=== PATIENT | male | born 1985 | race Caucasian/White ===

== ENCOUNTER 2019-08-22 18:46 | Observation (INO) | payer BC ==
[2019-08-22] MEDS ORDERED: SODIUM CHLORIDE 0.9% 1,000 ML IV STA (18:56)
[2019-08-22] MEDS ORDERED: DIPH,PERTUS(ACELL)TETVAC-LF 0.5 ML VIAL IM ONE (18:57)
[2019-08-22] MEDS ORDERED: MORPHINE SULFATE 4 MG/ML SYRINGE IV STA (18:57)
--- NOTE | 2019-08-22 19:03 | ED ---
General Adult HPI - General Stated complaint: chainsaw injury - History of Present Illness Initial comments: Dictation was produced using [employer] dictation software. please excuse any grammatical, word or spelling errors. Chief Complaint: 33-year-old male presents with leg wound. History of Present Illness: 33-year-old male who presents after leg wound. Patient was using a chain saw cutting shrubs [place]. He states that he lost his groundman/lineman chainsaw accidentally cut the lateral portion of his thigh. Patient does not know when his last tetanus was. Patient denies any numbness to going to his foot. She complains of significant pain to his left lateral leg. The ROS documented in this emergency department record has been reviewed and confirmed by me. Those systems with pertinent positive or negative responses have been documented in the HPI. All other systems are other negative and/or noncontributory. PHYSICAL EXAM: General Impression: Alert and oriented x3, not in acute distress HEENT: Normocephalic atraumatic, extra-ocular movements intact, pupils equal and reactive to light bilaterally, mucous membranes moist. Cardiovascular: Heart regular rate and rhythm, S1&S2 audible, no murmurs, rubs or gallops Chest: Lungs clear to auscultation bilaterally, no rhonchi, no wheeze, no rales Abdomen: Bowel sounds present, abdomen soft, non-tender, non-distended, no organomegaly Musculoskeletal: Pulses present and equal in all extremities, no peripheral edema Motor: no focal deficits noted Neurological: CN II-XII grossly intact, no focal motor or sensory deficits noted Skin: Large toe scene with a laceration to the lateral left thigh with expose fascia, exposing muscle belly. Psych: Normal affect and mood ED course: 33-year-old male presents with large laceration of the left lateral thigh after accidental trauma by a Chainsaw. Patient is large laceration to his left lateral thigh with exposed muscle tissue. tetanus was updated. Wound is irrigated. Patient given Ancef. His custom patient case with the branch of on- call orthopedic surgery who will speak to his attending regarding further care. The branch called back and requested that patient have his laceration closed loosely with sutures. Laceration at bedside was repaired using 3-0 nylon in a horizontal mattress fashion. More thorough will plan on doing wound washout and repair tomorrow at approximately 11 AM.Lab data evaluation obtained. Patient has mild hypokalemia of 3.1. Patient given by mouth potassium. Alcohol is 106. Femur x-ray at the site of the injury was a obtained. No obvious foreign bodies. Patient be admitted to Dr. Jain plans for - Related Data Home Medications Medication Instructions Recorded Confirmed No Known Home Medications 08/22/19 08/22/19 Allergies Allergy/AdvReac Type Severity Reaction Status Date / Time No Known Allergies Allergy Verified 08/22/19 19:39 Review of Systems ROS Statement: Those systems with pertinent positive or pertinent negative responses have been documented in the HPI. ROS Other: All systems not noted in ROS Statement are negative. Course Vital Signs 08/22/19 19:01 Temperature 98.3 F Pulse Rate 109 H Respiratory 20 Rate Blood Pressure 163/119 O2 Sat by Pulse 99 Oximetry Procedures - Laceration Laceration #1 Consent Obtained: verbal consent Indication: laceration Site: lower extremity Description: linear Depth: involves muscle layer Anesthetic Used: lidocaine 1%, with epi Anesthesia Technique: local infiltration Pre-repair: wound explored, irrigated extensively Type of Sutures: nylon Size of Sutures: 3-0 Technique: horizontal mattress Patient Tolerated Procedure: well Medical Decision Making - Lab Data Result diagrams: 08/22/19 19:00 08/22/19 19:00 Lab Results 08/22/19 08/22/19 08/22/19 Range/Units 18:55 19:00 19:00 WBC 9.5 (3.8-10.6) k/uL RBC 4.93 (4.30-5.90) m/uL Hgb 15.6 (13.0-17.5) gm/dL Hct 45.5 (39.0-53.0) % MCV 92.3 (80.0-100.0) fL MCH 31.6 (25.0-35.0) pg MCHC 34.3 (31.0-37.0) g/dL RDW 12.6 (11.5-15.5) % Plt Count 212 (150-450) k/uL Neutrophils % 58 % Lymphocytes % 32 % Monocytes % 5 % Eosinophils % 1 % Basophils % 1 % Neutrophils # 5.5 (1.3-7.7) k/uL Lymphocytes # 3.0 (1.0-4.8) k/uL Monocytes # 0.5 (0-1.0) k/uL Eosinophils # 0.1 (0-0.7) k/uL Basophils # 0.1 (0-0.2) k/uL PT (9.0-12.0) sec INR (<1.2) APTT (22.0-30.0) sec Sodium 138 (137-145) mmol/L Potassium 3.1 L (3.5-5.1) mmol/L Chloride 104 (98-107) mmol/L Carbon Dioxide 23 (22-30) mmol/L Anion Gap 11 mmol/L BUN 10 (9-20) mg/dL Creatinine 1.01 (0.66-1.25) mg/dL Est GFR (CKD-EPI)AfAm >90 (>60 ml/min/1.73 sqM) Est GFR (CKD-EPI)NonAf >90 (>60 ml/min/1.73 sqM) Glucose 101 H (74-99) mg/dL Calcium 9.0 (8.4-10.2) mg/dL Serum Alcohol 106 mg/dL Blood Type Blood Type Confirm B Positive Blood Type Recheck Bld Type Recheck Status Antibody Screen Spec Expiration Date 08/22/19 08/22/19 Range/Units 19:00 19:00 WBC (3.8-10.6) k/uL RBC (4.30-5.90) m/uL Hgb (13.0-17.5) gm/dL Hct (39.0-53.0) % MCV (80.0-100.0) fL MCH (25.0-35.0) pg MCHC (31.0-37.0) g/dL RDW (11.5-15.5) % Plt Count (150-450) k/uL Neutrophils % % Lymphocytes % % Monocytes % % Eosinophils % % Basophils % % Neutrophils # (1.3-7.7) k/uL Lymphocytes # (1.0-4.8) k/uL Monocytes # (0-1.0) k/uL Eosinophils # (0-0.7) k/uL Basophils # (0-0.2) k/uL PT 9.8 (9.0-12.0) sec INR 0.9 (<1.2) APTT 23.1 (22.0-30.0) sec Sodium (137-145) mmol/L Potassium (3.5-5.1) mmol/L Chloride (98-107) mmol/L Carbon Dioxide (22-30) mmol/L Anion Gap mmol/L BUN (9-20) mg/dL Creatinine (0.66-1.25) mg/dL Est GFR (CKD-EPI)AfAm (>60 ml/min/1.73 sqM) Est GFR (CKD-EPI)NonAf (>60 ml/min/1.73 sqM) Glucose (74-99) mg/dL Calcium (8.4-10.2) mg/dL Serum Alcohol mg/dL Blood Type B Positive Blood Type Confirm Blood Type Recheck No Previous Record Bld Type Recheck Status CABO Indicated Antibody Screen NEGATIVE Spec Expiration Date 08/25/2019 - 2299 Disposition Clinical Impression: Laceration Disposition: ADMITTED IP TO THIS [facility] Condition: Fair Referrals: Tu Bautista MD [Primary Care Provider] - 1-2 days Decision Time: 20:17
[2019-08-22] MEDS ORDERED: LIDOCAINE 1%-EPI 1:100,000 20 ML VIAL SQ STA (19:06)
[2019-08-22 19:15] LABS: Basophils # (A) 0.1 k/uL (0-0.2); Basophils % (A) 1 %; Eosinophils # (A) 0.1 k/uL (0-0.7); Eosinophils % (A) 1 %; HCT 45.5 % (39.0-53.0); HGB 15.6 gm/dL (13.0-17.5); Lymphocytes % (A) 32 %; MCH 31.6 pg (25.0-35.0); MCHC 34.3 g/dL (31.0-37.0); MCV 92.3 fL (80.0-100.0); Mean Platelet Volume 8.1; Monocytes # (A) 0.5 k/uL (0-1.0); Monocytes % (A) 5 %; Neutrophils # (A) 5.5 k/uL (1.3-7.7); Neutrophils % (A) 58 %; Platelet Count 212 k/uL (150-450); RBC 4.93 m/uL (4.30-5.90); RDW 12.6 % (11.5-15.5); WBC 9.5 k/uL (3.8-10.6)
[2019-08-22 19:23] LABS: African American GFR (CKD) >90 (>60 ml/min/1.73 sqM); Anion Gap 11 mmol/L; Blood Urea Nitrogen 10 mg/dL (9-20); Carbon Dioxide 23 mmol/L (22-30); Chloride 104 mmol/L (98-107); Glucose 101 mg/dL (74-99); Non-African American GFR(CKD) >90 (>60 ml/min/1.73 sqM); Potassium 3.1 mmol/L (3.5-5.1); Sodium 138 mmol/L (137-145)
[2019-08-22 19:27] LABS: Alcohol 106 mg/dL; INR 0.9 (<1.2); Partial Thromboplastin Time 23.1 sec (22.0-30.0); Prothrombin Time 9.8 sec (9.0-12.0)
[2019-08-22] MEDS ORDERED: MORPHINE SULFATE 4 MG/ML SYRINGE IVP ONE (19:47)
--- NOTE | 2019-08-22 20:13 | XR ---
EXAMINATION TYPE: XR femur LT DATE OF EXAM: 08/22/2019 COMPARISON: NONE HISTORY: Laceration TECHNIQUE: 4 views FINDINGS: I see no fracture nor dislocation. There is no sign of a radiopaque foreign body. There is large soft tissue laceration deformity over the anterior mid thigh. IMPRESSION: Laceration deformity. No fracture seen.
[2019-08-22] MEDS ORDERED: POTASSIUM CHLORIDE 20 MEQ in WATER FOR INJECTION 1 100ML.BAG IVPB STA (20:14)
[2019-08-22] MEDS ORDERED: ONDANSETRON 4 MG/2 ML VIAL IVP PRN (20:17)
[2019-08-22] MEDS ORDERED: NALOXONE 0.4 MG/ML 1 ML VIAL IV PRN (20:17)
[2019-08-22] MEDS ORDERED: ACETAMINOPHEN TAB 325 MG TAB PO PRN (20:17)
[2019-08-22 22:02] VITALS: BMI 24.2
[2019-08-22] MEDS: SODIUM CHLORIDE 0.9% 1,000 ML IV SCH (22:08)
[2019-08-23] MEDS: SODIUM CHLORIDE 0.9% 1,000 ML IV SCH ×3 (04:48→22:01)
[2019-08-23] MEDS: MORPHINE SULFATE 4 MG/ML SYRINGE IVP PRN ×3 (07:27→20:50)
[2019-08-23] MEDS: PANTOPRAZOLE 40 MG/10 ML VIAL IV SCH (09:54)
[2019-08-23] MEDS ORDERED: MIDAZOLAM 2 MG/2 ML VIAL ONE (11:05)
[2019-08-23] MEDS ORDERED: fentaNYL (PF) 50 MCG/ML 2 ML AMP ONE (11:05)
[2019-08-23] MEDS ORDERED: LIDOCAINE 1% INJ 10MG/ML (20 ML MDV) ONE (11:05)
[2019-08-23] MEDS ORDERED: PROPOFOL 10 MG/ML 20 ML VIAL IV ONE (11:05)
[2019-08-23] MEDS ORDERED: IV FLUID CONTINUATION 1,000 ML IV ONE (11:09)
--- NOTE | 2019-08-23 11:13 | P.HPOR ---
History of Present Illness H&P Date: 08/23/19 Chief Complaint: Left thigh pain The patient is a 33-year-old male who presents after injuring himself last evening with a chainsaw. He was cutting down samplings when he accidentally hit his left lateral thigh. He was brought emergently to the hospital. He was wearing pants when it happened. He notes his tetanus is up-to-date. Past Medical History Past Medical History: No Reported History History of Any Multi-Drug Resistant Organisms: None Reported Past Surgical History: No Surgical Hx Reported Past Psychological History: No Psychological Hx Reported Smoking Status: Current every day smoker Past Alcohol Use History: Occasional Past Drug Use History: Marijuana Medications and Allergies Home Medications Medication Instructions Recorded Confirmed Type No Known Home Medications 08/22/19 08/22/19 History Allergies Allergy/AdvReac Type Severity Reaction Status Date / Time No Known Allergies Allergy Verified 08/22/19 19:39 Physical Examination The patient is a well-developed well-nourished male of mesomorphic habitus. Painless passive motion left hip 12 cm laceration left lateral proximal thigh, no warmth/erythema/drainage Left knee extension strength 4/5 with pain Light touch distally intact left lower extremity Nontender left knee with full range of motion Distal neurovascular exam appears intact left lower extremity 2+ left dorsalis pedal and posterior tibialis pulses Nontender right lower extremity Results Left femur x-rays show no osseous abnormality. There is a lateral thigh soft tissue defect. - Labs Labs: Abnormal Lab Results - Last 24 Hours (Table) 08/22/19 Range/Units 19:00 Potassium 3.1 L (3.5-5.1) mmol/L Glucose 101 H (74-99) mg/dL H & H 08/22/19 Range/Units 19:00 Hgb 15.6 (13.0-17.5) gm/dL Hct 45.5 (39.0-53.0) % Coagulation 08/22/19 Range/Units 19:00 INR 0.9 (<1.2) Result Diagrams: 08/22/19 19:00 08/22/19 19:00 Assessment and Plan Assessment: Left lateral proximal thigh laceration/chainsaw injury Plan: I talked with the patient regarding his condition and recommend proceeding with irrigation and debridement of his extensive soft tissue wound. We will also plan on laceration repair. Risks and benefits were discussed at length in layman's terms. We will keep the patient overnight for continued IV antibiotics. Time with Patient: Greater than 30
--- NOTE | 2019-08-23 12:10 | P.OP ---
Date of Procedure: 08/23/19 Preoperative Diagnosis: Traumatic left lateral thigh laceration secondary to chain saw Postoperative Diagnosis: Same Procedure(s) Performed: Irrigation and debridement left lateral thigh wound with 12 cm laceration repair Anesthesia: MIGUEL Surgeon: Ra Jorgensen [employer] #1: Red Hall Estimated Blood Loss (ml): 15 Pathology: none sent Condition: stable Disposition: PACU Indications for Procedure: The patient's a 33-year-old male who sustained a traumatic laceration to his left lateral thigh yesterday while operating a chain saw. Upon evaluation he was noted of a deep laceration involving the fascia and muscle of the left lateral thigh. A discussion of the risks and benefits of irrigation and debridement with laceration repair was made with the patient. He opted to proceed with surgery. Risks to include possible infection and need for subsequent procedures was discussed. Operative Findings: As below Description of Procedure: The patient was brought to the operating room, and after induction of general anesthesia the left lower extremity was prepped and draped in a normal fashion. The previously placed sutures were removed. The wound was explored. Extending approximately 12 cm along the proximal lateral aspect of the left thigh. The jagged wound edges were debrided sharply back to stable tissue with a scalpel. The underlying iliotibial tract was lacerated along with the vastus lateralis fascia and a portion of the muscle belly. This was copiously irrigated with pulsatile lavage. The vastus lateralis fascia was closed with simple interrupted 2-0 Vicryl suture. The fascia julian was closed in a similar fashion. The subcutaneous tissues were loosely reapproximated with simple 3-0 nylon suture. A sterile dressing was applied. The patient was awoken from general anesthesia and transferred to recovery room in good condition. Blood loss was estimated at 15 mL. No complications were incurred. Sponge and needle counts were correct in the case.
[2019-08-23] MEDS: HYDROmorphone 1 MG/ML 1 ML SYRINGE IVP ONE ×2 (12:28→12:35)
[2019-08-23] MEDS: HYDROcodone/APAP 5-325MG 1 EACH TAB PO PRN ×2 (14:40→22:00)
[2019-08-24] MEDS: SODIUM CHLORIDE 0.9% 1,000 ML IV SCH ×2 (00:48→11:58)
[2019-08-24] MEDS: MORPHINE SULFATE 4 MG/ML SYRINGE IVP PRN ×2 (00:52→10:20)
[2019-08-24 04:34] VITALS: RESP 16
[2019-08-24] MEDS: HYDROcodone/APAP 5-325MG 1 EACH TAB PO PRN ×2 (07:16→12:21)
[2019-08-24] MEDS: PANTOPRAZOLE 40 MG/10 ML VIAL IV SCH (07:18)
--- NOTE | 2019-08-24 12:16 | P.PN ---
Subjective Progress Note Date: 08/24/19 Principal diagnosis: Status post irrigation and debridement with laceration repair left thigh Patient evaluated at bedside, he is resting comfortably. Pain is well- controlled. Denies any chest pain or shortness of breath Objective - Vital Signs Vital signs: Vital Signs Temp 97.8 F 08/24/19 07:00 Pulse 95 08/24/19 07:00 Resp 16 08/24/19 07:00 BP 122/72 08/24/19 07:00 Pulse Ox 97 08/24/19 07:00 Intake & Output 08/23/19 08/24/19 08/24/19 18:59 06:59 18:59 Intake Total 1460 Output Total 15 700 1850 Balance 1445 -700 -1850 Intake: IV 500 Intake, IV Titration 960 Amount Sodium Chloride 0.9% 1, 960 000 ml @ 120 mls/hr IV . Q8H20M QING Rx#:[id number] Output: Urine 700 1850 Estimated Blood Loss 15 Other: Voiding Method Toilet Toilet Urinal Urinal # Voids 2 - Exam Left lower extremity: Postoperative bandages in good position and condition. Sensation to light touch throughout extremities intact. Dorsal pedis pulses 2+ - Labs CBC & Chem 7: 08/22/19 19:00 08/22/19 19:00 Assessment and Plan Plan: assessment: Postoperative day 1 status post irrigation and debridement with laceration repair left thigh Plan: Local wound care discussed with patient, he is okay to remove surgical dressing tomorrow Showering instructions were discussed Activity level discussed Pain control, will send an oral medication. Okay to use anti-inflammatories as needed also Plan for follow-up in 2 weeks Time with Patient: Less than 30
--- NOTE | 2019-08-24 12:23 | P.DS ---
Providers Date of admission: 08/22/19 20:18 Expected date of discharge: 08/24/19 Attending physician: Ra Jorgensen Primary care physician: Tu Bautista [facility] Course: Date of admission: 08/22/2019 Date of discharge: 08/24/2019 Admission diagnosis: Left thigh laceration Discharge diagnosis: Status post irrigation and debridement with laceration repair left thigh Attending physician: Dr. Jorgensen Surgical procedures: Irrigation and debridement with laceration repair left thigh Brief history: Patient is a 33-year-old male who [facility] 08/[facility] after cutting himself with a chainsaw on this left thigh. Patient was admitted to [facility] with plan for irrigation and debridement of the laceration repair of the thigh wound for 08/23/[address] Jorgensen. Hospital course: Details of patient's surgery can be found in operative report. Patient tolerated the procedure well and was subsequently transported to orthopedic floor. Patient's orthopeidc and medical care was provided daily. Patient was noted to have a relatively uneventful postoperative course. Patient reported satisfactory pain control with oral pain medications by postoperative day 0. Patient showed satisfactory progress with physical therapy. Patient moved steadily through the program and had no difficulty meeting the goals by postoperative day 1. Given patient's otherwise satisfactory course and having met physical therapy goals, plan is to discharge patient home on postoperative day 1. Discharge condition/disposition: Patient will be discharged home in stable condition. Discharge medications: Instructions are given on resumption of patient's normal daily medications per primary care recommendation, in addition patient will be prescribed [place] 5 mg/325 mg, ibuprofen 800 mg, Keflex 500 mg. Discharge instructions: 1. Wound care and infection precautions, keep incision dry and covered while showering, no lotions, creams, moisturizers. No soaking, tubs, pools, hottubs. Do not scrub over the incision. 2. Weight-bear as tolerated with walker / cane until follow-up. 3. Ice and elevate when necessary. Do not exceed 20 minutes per hour with ice pack. 4. Utilize compression sleeve until seen at first follow up appointment. 10. Follow up in office at 2 weeks postop with Jake Hall PA-C 11. Follow up with your primary care doctor 7-10 days after discharge. 12. Contact [facility] with any questions, . Procedures: Irrigation and debridement with laceration repair left thigh Patient Condition at Discharge: Fair Plan - Discharge Summary New Discharge Prescriptions: New Ibuprofen 800 mg PO BID PRN #40 tablet PRN Reason: Pain Hydrocodone/Acetaminophen [[place] 5-325] 1 each PO Q6HR PRN #28 tab PRN Reason: Pain Cephalexin [Keflex] 500 mg PO Q8HR #21 cap Discharge Medication List Cephalexin [Keflex] 500 mg PO Q8HR #21 cap 08/24/19 [Rx] Hydrocodone/Acetaminophen [[place] 5-325] 1 each PO Q6HR PRN #28 tab 08/24/19 [Rx] Ibuprofen 800 mg PO BID PRN #40 tablet 08/24/19 [Rx] Follow up Appointment(s)/Referral(s): Tu Bautista MD [Primary Care Provider] - 1-2 days Red Hall PAC [[employer]] - 2 Weeks Activity/Diet/Wound Care/Special Instructions: Orthopedic discharge instructions: 1. Okay to remove postop dressing tomorrow, daily dressing changes 2. Keep incision dry and covered while showering 3. Weight-bear as tolerated with walker/crutches 4. Pain medication and anti-inflammatories as needed 5. Take antibiotic as prescribed 6. Plan for follow-up at [facility] in 2 weeks, contact [phone] with any questions Discharge Disposition: HOME SELF-CARE
[2019-08-24 16:24] VITALS: BP 120/73; PULSE 86; TEMP 98.5
== END 2019-08-24 16:52 | disposition home or self-care (01) ==
LOC: EC 18:46 → 4SSUR 20:18
PROVIDERS: ADMIT Orthopaedic Surgery; ATTEND Orthopaedic Surgery
DX: S76.922A Laceration of unspecified muscles, fascia and tendons at thigh level, left thigh, initial encounter (principal); E87.6 Hypokalemia; F17.210 Nicotine dependence, cigarettes, uncomplicated; K21.9 Gastro-esophageal reflux disease without esophagitis; Z79.1 Long term (current) use of non-steroidal anti-inflammatories (NSAID); W29.3XXA Contact with powered garden and outdoor hand tools and machinery, initial encounter; Y93.H2 Activity, gardening and landscaping; Y92.821 Forest as the place of occurrence of the external cause
CPT/HCPCS: 11043; 96365; 96366; 99285; 13121; 13122; 36415; 86900; 86901; 80048; 85025; 85610; 85730; 86850; 80320; 73552; G0378 ×3; J2250; J2270 ×3; J3480; J0690 ×3; J2405; J2001; J3010; J1170; J2704; C9113 ×2